=== PATIENT | female | born 1965 | race Caucasian/White ===

== ENCOUNTER 2016-05-06 02:00 | Inpatient (IN) | payer BC, MEDICAID ==
[2016-05-06 03:10] LABS: % IMMATURE GRANULYOCYTES 0.2 % (0.0-1.1); ABSOLUTE IMMATURE GRANULOCYTES 0.01 10^3/uL (0.00-0.10); ADD DIFF? NO; ADD MORPH? NO; ADD SCAN? YES; FRAGMENT RBC FLAG 0 (0-99); HEMATOCRIT 45.7 % (38.0-47.0); HEMOGLOBIN 15.6 g/dL (12.6-16.3); LEFT SHIFT FLG 0 (0-99); LIPEMIA HEMOLYSIS FLAG 90 (0-99); MEAN CELL HEMOGLOBIN 33.3 pg (27.9-34.1); MEAN CELL HEMOGLOBIN CONCENTR. 34.1 g/dL (32.4-36.7); MEAN CELL VOLUME 97.6 fL (81.5-99.8); MEAN PLATELET VOLUME 10.1 fL (8.7-11.7); PLATELET CLUMPS FLAG 10 (0-99); PLATELET COUNT 181 10^3/uL (150-400); RED BLOOD CELL COUNT 4.68 10^6/uL (4.18-5.33); RED CELL DISTRIBUTION WIDTH 13.6 % (11.5-15.2)
[2016-05-06 03:12] LABS: ATYPICAL LYMPHOCYTE FLAG 300 (0-99)
[2016-05-06 03:16] LABS: ANION GAP 15 mEq/L (8-16); CALCIUM 9.5 mg/dL (8.5-10.4); CARBON DIOXIDE 24 mEq/l (22-31); CHLORIDE 102 mEq/L (97-110); CREATININE 0.7 mg/dL (0.6-1.0); GLOMERULAR FILTRATION RATE > 60; GLUCOSE 89 mg/dL (70-100); POTASSIUM 3.3 mEq/L (3.5-5.2); SODIUM 141 mEq/L (134-144)
[2016-05-06] MEDS ORDERED: NS 1,000 ML IV ONE (03:37)
[2016-05-06] MEDS ORDERED: IPRATROPIUM/ALBUTEROL 3 ML DEYVIAL ONE (03:49)
[2016-05-06 03:50] LABS: SCAN POSITIVE
[2016-05-06 03:56] LABS: PLATELET ESTIMATE ADEQUATE (ADEQ)
[2016-05-06] MEDS ORDERED: IPRATROPIUM/ALBUTEROL 3 ML DEYVIAL IH ONE (03:57)
[2016-05-06] MEDS ORDERED: HYDROCODONE/APAP 5/325 TAB PO PRN (04:00)
[2016-05-06] MEDS ORDERED: HYDROCODONE/APAP 5/325 TAB ONE (04:02)
[2016-05-06] MEDS ORDERED: AZITHROMYCIN 250 MG TAB PO ONE (04:36)
[2016-05-06] MEDS ORDERED: predniSONE 20 MG TAB PO ONE (04:55)
[2016-05-06] MEDS ORDERED: ACETAMINOPHEN 500 MG TAB PO PRN (05:12)
[2016-05-06] MEDS ORDERED: LORazepam 0.5 MG TAB PO PRN (05:12)
[2016-05-06] MEDS ORDERED: ONDANSETRON 4 MG/2 ML VIAL IVP PRN (05:12)
[2016-05-06] MEDS ORDERED: ONDANSETRON DISINTEGRATING 4 MG TAB PO PRN (05:12)
[2016-05-06] MEDS ORDERED: ALBUTEROL 3 ML DEYVIAL IH PRN ×2 (05:17→09:26)
--- NOTE | 2016-05-06 05:17 | EDPHY ---
H & P Stated Complaint: cough, fever, sore throat , headache, vomiting Time Seen by Provider: 05/06/16 04:01 HPI/ROS: HPI The patient presents with about 1 week of cough, nasal congestion, headache, fevers. The cough has been nonproductive, worse at night, constant, minimally improved with albuterol. She developed a sore throat today. She has been taking Tylenol and Excedrin without any relief. She does not have any sick contacts.. REVIEW OF SYSTEMS Constitutional: Fevers and chills present Eyes: No discharge. ENT: + sore throat. Cardiovascular: No chest pain, no palpitations. Respiratory: See HPI Gastrointestinal: No abdominal pain, no vomiting. Genitourinary: No hematuria. Musculoskeletal: No back pain. Skin: No rashes. Neurological: No headache. PMHx: Asthma, , no recent admissions Soc Hx: Smoker, lives at home FHx: PHYSICAL General Appearance: Alert, no distress Eyes: Pupils equal and round no pallor or injection ENT, Mouth: Mucous membranes moist Respiratory: There are no retractions, lungs are clear to auscultation Cardiovascular: Regular rate and rhythm Gastrointestinal: Abdomen is soft and non-tender, no masses, bowel sounds normal Neurological: A&O, moves all extremities Skin: Warm and dry, no rashes Musculoskeletal: Neck is supple non tender Extremities: symmetrical, full range of motion Psychiatric: Patient is oriented X 3, there is no agitation Source: Patient Exam Limitations: No limitations - Personal History LMP (Females 10-55): Post Menopausal - Medical/Surgical History Hx Asthma: Yes Hx Chronic Respiratory Disease: No Hx Diabetes: No Hx Cardiac Disease: No Hx Renal Disease: No Hx Cirrhosis: No Hx Alcoholism: No Hx HIV/AIDS: No Hx Splenectomy or Spleen Trauma: No - Social History Smoking Status: Current every day smoker Constitutional: Initial Vital Signs Temperature (C) 38 C 05/06/16 02:10 Heart Rate 109 H 05/06/16 02:10 Respiratory Rate 20 05/06/16 02:10 Blood Pressure 111/77 05/06/16 02:10 O2 Sat (%) 86 L 05/06/16 02:10 O2 Delivery Mode Room Air O2 (L/minute) 2 Allergies/Adverse Reactions: No Allergies [NKDA] Allergy (Mild, Verified 07/20/09 22:04) NUTS Allergy (Severe, Uncoded 05/06/16 02:10) Anaphylaxis Home Medications: Medication Instructions Recorded Advair 100/50 07/20/09 Albuterol Sulf 07/20/09 EPINEPHrine [Epipen] 0.3 mg IM ONCE #2 syr 07/20/09 LEXAPRO 07/20/09 PREDNISONE 3 tab PO DAILY #9 07/20/09 Singulair 07/20/09 Xopenex Hfa 07/20/09 Xyzal 07/20/09 Medical Decision Making - Diagnostics Imaging: Chest x-ray two view shows diffuse peribronchial thickening consistent with atypical pneumonia with reactive airways, interpreted by me, radiology interpretation is pending. Differential Diagnosis: This is a 50-year-old female with history of asthma, smoking who presents from home with about 1 week of sore throat, cough, rhinorrhea, fevers, vomiting. On exam, she is hypoxic, slightly tachycardic. Differential diagnosis includes influenza, pneumonia, asthma exacerbation, COPD , less likely pulmonary embolism given no chest pain and positive rhinorrhea, sore throat. In the emergency room, the patient was given IV fluids with improvement in her mild tachycardia. Basic labs were checked and were unremarkable including a rapid flu. Her chest x-ray is suggestive of atypical pneumonia verses viral illness asthma exacerbation. She improved somewhat with nebs, however required oxygen because of sats in the 80s. I have given her antibiotics for community- acquired pneumonia. She will be admitted to the hospitalist service. I have discussed the case with the hospitalist . - Data Points Laboratory Results: Laboratory Results 05/06/16 02:45 05/06/16 02:45 05/06/16 05/06/16 05/06/16 02:59 02:45 02:45 WBC 5.78 10^3/uL 10^3/uL (3.80-9.50) RBC 4.68 10^6/uL 10^6/uL (4.18-5.33) Hgb 15.6 g/dL g/dL (12.6-16.3) Hct 45.7 % % (38.0-47.0) MCV 97.6 fL fL (81.5-99.8) MCH 33.3 pg pg (27.9-34.1) MCHC 34.1 g/dL g/dL (32.4-36.7) RDW 13.6 % % (11.5-15.2) Plt Count 181 10^3/uL 10^3/uL (150-400) MPV 10.1 fL fL (8.7-11.7) Neut % (Auto) 40.6 % % (39.3-74.2) Lymph % (Auto) 44.1 % % (15.0-45.0) Dillon % (Auto) 8.1 % % (4.5-13.0) Eos % (Auto) 6.7 % % (0.6-7.6) Baso % (Auto) 0.3 % % (0.3-1.7) Nucleat RBC Rel Count 0.0 % % (0.0-0.2) Absolute Neuts (auto) 2.34 10^3/uL 10^3/uL (1.70-6.50) Absolute Lymphs (auto) 2.55 10^3/uL 10^3/uL (1.00-3.00) Absolute Monos (auto) 0.47 10^3/uL 10^3/uL (0.30-0.80) Absolute Eos (auto) 0.39 10^3/uL 10^3/uL (0.03-0.40) Absolute Basos (auto) 0.02 10^3/uL 10^3/uL (0.02-0.10) Absolute Nucleated RBC 0.00 10^3/uL 10^3/uL (0-0.01) Immature Gran % 0.2 % % (0.0-1.1) Seg Neutrophils % 34 % % Band Neutrophils % 5 % % Lymphocytes % 45 % % Monocytes % 10 % % Eosinophils % 6 % % Immature Gran # 0.01 10^3/uL 10^3/uL (0.00-0.10) Absolute Seg Neuts 1.97 10^/uL 10^/uL (1.70-6.50) Absolute Band Neuts 0.29 10^3/uL 10^3/uL (0.00-0.70) Absolute Lymphocytes 2.60 10^3/uL 10^3/uL (1.00-3.00) Absolute Monocytes 0.58 10^3/uL 10^3/uL (0.30-0.80) Absolute Eosinophils 0.35 10^3/uL 10^3/uL (0.03-0.40) RBC/WBC/PLT Morphology NORMAL (NORMAL) Atypical Lymphocytes 1+ H Platelet Estimate ADEQUATE (ADEQ) VBG Lactic Acid Sodium 141 mEq/L mEq/L (134-144) Potassium 3.3 mEq/L L mEq/L (3.5-5.2) Chloride 102 mEq/L mEq/L (97-110) Carbon Dioxide 24 mEq/l mEq/l (22-31) Anion Gap 15 mEq/L mEq/L (8-16) BUN 8 mg/dL mg/dL (7-23) Creatinine 0.7 mg/dL mg/dL (0.6-1.0) Estimated GFR > 60 Glucose 89 mg/dL mg/dL (70-100) Calcium 9.5 mg/dL mg/dL (8.5-10.4) Influenza Typ A,B (DFA) NEGATIVE FOR FLU (NEGATIVE) 05/06/16 02:43 WBC RBC Hgb Hct MCV MCH MCHC RDW Plt Count MPV Neut % (Auto) Lymph % (Auto) Dillon % (Auto) Eos % (Auto) Baso % (Auto) Nucleat RBC Rel Count Absolute Neuts (auto) Absolute Lymphs (auto) Absolute Monos (auto) Absolute Eos (auto) Absolute Basos (auto) Absolute Nucleated RBC Immature Gran % Seg Neutrophils % Band Neutrophils % Lymphocytes % Monocytes % Eosinophils % Immature Gran # Absolute Seg Neuts Absolute Band Neuts Absolute Lymphocytes Absolute Monocytes Absolute Eosinophils RBC/WBC/PLT Morphology Atypical Lymphocytes Platelet Estimate VBG Lactic Acid 1.6 mmol/L mmol/L (0.7-2.1) Sodium Potassium Chloride Carbon Dioxide Anion Gap BUN Creatinine Estimated GFR Glucose Calcium Influenza Typ A,B (DFA) Medications Given: Discontinued Medications Acetaminophen/Hydrocodone Bitart ([place] 5/325) 2 tab PO Q4HRS PRN PRN Reason: Pain, Moderate Able to Take PO Stop: 05/16/16 03:59 Last Admin: 05/06/16 04:00 Dose: 2 tab Albuterol/Ipratropium (Duoneb) 3 ml IH EDNOW ONE Stop: 05/06/16 03:58 Last Admin: 05/06/16 03:59 Dose: 3 ml Azithromycin (Zithromax) 500 mg PO EDNOW ONE PRN Reason: Protocol Stop: 05/06/16 04:37 Last Admin: 05/06/16 05:02 Dose: 500 mg Sodium Chloride (Ns) 1,000 mls @ 0 mls/hr IV ONCE ONE PRN Reason: Wide Open Stop: 05/06/16 03:38 Last Admin: 05/06/16 02:55 Dose: 1,000 mls Ceftriaxone Sodium/Dextrose (Rocephin 1 Gm (Premix)) 50 mls @ 100 mls/hr IV EDNOW ONE PRN Reason: Protocol Stop: 05/06/16 05:05 Last Admin: 05/06/16 05:03 Dose: 50 mls Prednisone (Prednisone) 60 mg PO EDNOW ONE Stop: 05/06/16 04:56 Last Admin: 05/06/16 05:38 Dose: 60 mg Departure - Departure Disposition: [facility] Inpatient Acute Clinical Impression: Exacerbation of asthma, Hypoxia Pneumonia Qualifiers: Pneumonia type: due to unspecified organism Laterality: bilateral Lung location : unspecified part of lung Qualified Code(s): J18.9 - Pneumonia, unspecified organism Condition: Fair
[2016-05-06] MEDS ORDERED: LORazepam 1 MG TAB PO PRN (05:18)
[2016-05-06] MEDS ORDERED: PROTOCOL POTASSIUM 1 DOSE MISC PRN (06:23)
[2016-05-06] MEDS ORDERED: PROTOCOL MAGNESIUM 1 DOSE IV PRN (06:23)
--- NOTE | 2016-05-06 06:25 | PDGENHP ---
History and Physical - Chief Complaint cough, n/v/d - History of Present Illness patient is a 50-year-old female with history of asthma, GERD, allergic rhinitis , anxiety disorder who presents to the ED complaining of 1 week generalized malaise. Patient states symptoms began with congestion, cough sometimes productive and sore throat. soon after she also began experiencing nausea, vomiting and diarrhea reports having greater then 10 episodes of vomiting and diarrhea daily for the past 3 days, no blood visualized in either vomitus or stool. In addition she has been having continuous fevers and chills. By 2017, patient felt her vomiting and diarrhea had begun to improve, last episode of diarrhea was the morning of 05/05. However she continued to feel generalized malaise and shortness of breath with wheezing. Her wheezing was not really responsive to her home albuterol pump and neb treatments, so she decided to come to the ED for further evaluation. She denies any associated chest pain, palpitations or urinary symptoms. She reports a sick contact in her , who is having similar symptoms with less intensity. Denies any recent travel or prolonged immobilization. On arrival to the ED patient was febrile and hypoxic, but otherwise hemodynamically stable. Labs revealed normal CBC, hypokalemia but otherwise normal BMP. Chest x-ray revealed no obvious focal infiltrate, but evidence of a viral pneumonitis, official radiology read pending. Patient was initiated on neb treatments and antibiotic coverage. History Information - Allergies/Home Medication List Allergies/Adverse Reactions: No Allergies [NKDA] Allergy (Mild, Verified 07/20/09 22:04) NUTS Allergy (Severe, Uncoded 05/06/16 02:10) Anaphylaxis Home Medications: Advair 100/50 07/20/09 [Last Taken Unknown] Albuterol Sulf 07/20/09 [Last Taken Unknown] LEXAPRO 07/20/09 [Last Taken Unknown] Singulair 07/20/09 [Last Taken Unknown] Xopenex Hfa 07/20/09 [Last Taken Unknown] Xyzal 07/20/09 [Last Taken Unknown] I have personally reviewed and updated: family history, medical history, social history, surgical history - Past Medical History Additional medical history: Asthma- has never been intubated, last hospitalization for exacerbation was in childhood. chronic allergic rhinitis. Severe nut allergy with anaphylaxis, has never been intubated. generalized anxiety disorder. 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 Review of Systems ROS: 10pt was reviewed & negative except for what was stated in HPI & below Physical Exam Temp Pulse Resp BP Pulse Ox 37.3 C 80 18 98/59 L 93 05/06/16 06:18 05/06/16 06:18 05/06/16 06:18 05/06/16 06:18 05/06/16 06:18 O2 (L/minute) 2 Constitutional: no apparent distress, appears nourished, not in pain Eyes: PERRL, anicteric sclera, EOMI Ears, Nose, Mouth, Throat: hearing normal, ears appear normal, no oral mucosal ulcers, dry mucous membranes Cardiovascular: regular rate and rhythym, no murmur, rub, or gallop, pulses symmetric bilaterally, No JVD, No edema Peripheral Pulses: 2+: dorsalis-pedis (R), dorsalis-pedis (L) Respiratory: no respiratory distress, no rales or rhonchi, expiratory wheeze Gastrointestinal: normoactive bowel sounds, soft, non-tender abdomen, no palpable masses, No guarding, No rebound Genitourinary: no bladder fullness, no bladder tenderness Skin: warm, normal color, no rashes or abrasions, no fluctuance, No mottled Musculoskeletal: full muscle strength, no muscle tenderness, normal joint ROM, no joint effusions Neurologic: AAOx3, sensation intact bilaterally, CN II-XII Intact, No weakness, No numbness Psychiatric: interacting appropriately, not anxious, not encephalopathic, thought process linear Lab Data & Imaging Review 05/06/16 02:45 05/06/16 02:45 WBC 5.78 10^3/uL (3.80-9.50) 05/06/16 02:45 RBC 4.68 10^6/uL (4.18-5.33) 05/06/16 02:45 Hgb 15.6 g/dL (12.6-16.3) 05/06/16 02:45 Hct 45.7 % (38.0-47.0) 05/06/16 02:45 MCV 97.6 fL (81.5-99.8) 05/06/16 02:45 MCH 33.3 pg (27.9-34.1) 05/06/16 02:45 MCHC 34.1 g/dL (32.4-36.7) 05/06/16 02:45 RDW 13.6 % (11.5-15.2) 05/06/16 02:45 Plt Count 181 10^3/uL (150-400) 05/06/16 02:45 MPV 10.1 fL (8.7-11.7) 05/06/16 02:45 Neut % (Auto) 40.6 % (39.3-74.2) 05/06/16 02:45 Lymph % (Auto) 44.1 % (15.0-45.0) 05/06/16 02:45 Dale % (Auto) 8.1 % (4.5-13.0) 05/06/16 02:45 Eos % (Auto) 6.7 % (0.6-7.6) 05/06/16 02:45 Baso % (Auto) 0.3 % (0.3-1.7) 05/06/16 02:45 Nucleat RBC Rel Count 0.0 % (0.0-0.2) 05/06/16 02:45 Absolute Neuts (auto) 2.34 10^3/uL (1.70-6.50) 05/06/16 02:45 Absolute Lymphs (auto) 2.55 10^3/uL (1.00-3.00) 05/06/16 02:45 Absolute Monos (auto) 0.47 10^3/uL (0.30-0.80) 05/06/16 02:45 Absolute Eos (auto) 0.39 10^3/uL (0.03-0.40) 05/06/16 02:45 Absolute Basos (auto) 0.02 10^3/uL (0.02-0.10) 05/06/16 02:45 Absolute Nucleated RBC 0.00 10^3/uL (0-0.01) 05/06/16 02:45 Immature Gran % 0.2 % (0.0-1.1) 05/06/16 02:45 Seg Neutrophils % 34 % 05/06/16 02:45 Band Neutrophils % 5 % 05/06/16 02:45 Lymphocytes % 45 % 05/06/16 02:45 Monocytes % 10 % 05/06/16 02:45 Eosinophils % 6 % 05/06/16 02:45 Immature Gran # 0.01 10^3/uL (0.00-0.10) 05/06/16 02:45 Absolute Seg Neuts 1.97 10^/uL (1.70-6.50) 05/06/16 02:45 Absolute Band Neuts 0.29 10^3/uL (0.00-0.70) 05/06/16 02:45 Absolute Lymphocytes 2.60 10^3/uL (1.00-3.00) 05/06/16 02:45 Absolute Monocytes 0.58 10^3/uL (0.30-0.80) 05/06/16 02:45 Absolute Eosinophils 0.35 10^3/uL (0.03-0.40) 05/06/16 02:45 RBC/WBC/PLT Morphology NORMAL (NORMAL) 05/06/16 02:45 Atypical Lymphocytes 1+ H 05/06/16 02:45 Platelet Estimate ADEQUATE (ADEQ) 05/06/16 02:45 VBG Lactic Acid 1.6 mmol/L (0.7-2.1) 05/06/16 02:43 Sodium 141 mEq/L (134-144) 05/06/16 02:45 Potassium 3.3 mEq/L (3.5-5.2) L 05/06/16 02:45 Chloride 102 mEq/L (97-110) 05/06/16 02:45 Carbon Dioxide 24 mEq/l (22-31) 05/06/16 02:45 Anion Gap 15 mEq/L (8-16) 05/06/16 02:45 BUN 8 mg/dL (7-23) 05/06/16 02:45 Creatinine 0.7 mg/dL (0.6-1.0) 05/06/16 02:45 Estimated GFR > 60 05/06/16 02:45 Glucose 89 mg/dL (70-100) 05/06/16 02:45 Calcium 9.5 mg/dL (8.5-10.4) 05/06/16 02:45 Influenza Typ A,B (DFA) NEGATIVE FOR FLU (NEGATIVE) 05/06/16 02:59 Visualized and Interpreted Chest x-ray results: Yes Chest X-Ray results: other (? pneumonitis) Assessment & Plan Assessment: patient is a 50-year-old female with a history of asthma, GERD and generalized anxiety disorder who presents to the ED with 8 days of upper respiratory and gastroenteritis viral syndrome. ED evaluation reveals hypoxia on room air consistent with acute asthma exacerbation, possibly community-acquired pneumonia with rapid flu swab negative. Plan: # acute hypoxic respiratory failure Patient hypoxic on room air with faint wheezing present diffusely. Acute respiratory failure likely secondary to acute asthma exacerbation, with viral versus bacterial interstitial pneumonia also likely present and contributing to hypoxia. patient without any risk factors for PE, and denies any chest pain palpitations, low suspicion. Will initiate treatment with p.o. steroids, standing and p.r.n. nebs, and antibiotic coverage for community-acquired pneumonia. Rapid flu swab was negative. # fever, cough Patient reports 8 days of headache, productive cough and shortness of breath, as well as profuse nausea, vomiting and diarrhea. Although patient had low grade fever on presentation, she did not meet sepsis criteria, was without leukocytosis and lactic acid was wnl. CXR official read pending, but there appears to be evidence of pneumonitis vs atypical community acquired pneumonia. Will treat with abx for CAP coverage, check blood and sputum cultures, as well as legionella and strept antigen. # nausea, vomiting, diarrhea Appears consistent with a viral gastroenteritis. Abdominal exam is benign. No indication for abdominal imaging, but will check LFTs and reassess. Patient feels her abdominal symptoms were improving over the past 24 hours. Will continue symptomatic treatment and IVF hydration as needed. # hypokalemia Likely related to recent GI losses. Will place on replacement protocol and trend. # chronic alcohol use Pt reports drinking about 6 beers daily, occasionally more. She denies any history of withdrawal symptoms, but will place on CIWA, with ativan prn per protocol and supplement thiamine/folate/Multivitamin. # chronic allergic rhinitis Cont home anti-histamine, which patient takes daily. # generalized anxiety disorder Stable, will cont home med and provide ativan prn. # dispo: admit to observation status for mild asthma exacerbation, viral syndrome # gen: regular diet DVT ppx: lovenox Full code
[2016-05-06] MEDS: IPRATROPIUM/ALBUTEROL 3 ML DEYVIAL IH SCH ×5 (06:53→20:41)
[2016-05-06] MEDS: NS 1,000 ML IV SCH (07:48)
[2016-05-06 08:33] LABS: % IMMATURE GRANULYOCYTES 0.5 % (0.0-1.1); ABSOLUTE IMMATURE GRANULOCYTES 0.02 10^3/uL (0.00-0.10); ADD DIFF? NO; ADD MORPH? NO; ADD SCAN? YES; FRAGMENT RBC FLAG 0 (0-99); HEMATOCRIT 40.7 % (38.0-47.0); HEMOGLOBIN 13.6 g/dL (12.6-16.3); LEFT SHIFT FLG 0 (0-99); LIPEMIA HEMOLYSIS FLAG 80 (0-99); MEAN CELL HEMOGLOBIN 32.2 pg (27.9-34.1); MEAN CELL HEMOGLOBIN CONCENTR. 33.4 g/dL (32.4-36.7); MEAN CELL VOLUME 96.4 fL (81.5-99.8); MEAN PLATELET VOLUME 9.9 fL (8.7-11.7); PLATELET CLUMPS FLAG 0 (0-99); PLATELET COUNT 173 10^3/uL (150-400); RED BLOOD CELL COUNT 4.22 10^6/uL (4.18-5.33); RED CELL DISTRIBUTION WIDTH 13.9 % (11.5-15.2)
[2016-05-06] MEDS: HYDROCODONE/APAP 5/325 TAB PO PRN ×3 (09:06→19:43)
[2016-05-06] MEDS: FOLIC ACID 1 MG TAB PO SCH (09:06)
[2016-05-06 09:07] LABS: ATYPICAL LYMPHOCYTE FLAG 300 (0-99)
[2016-05-06] MEDS: ENOXAPARIN 40 MG/0.4 ML SYR SC SCH (09:07)
[2016-05-06] MEDS: MULTIVITAMINS 1 EACH TAB PO SCH (09:07)
[2016-05-06 09:18] LABS: ALANINE AMINOTRANSFERASE 36 IU/L (9-52); ALBUMIN 3.5 g/dL (3.5-5.0); ALKALINE PHOSPHATASE 83 IU/L (38-126); ANION GAP 9 mEq/L (8-16); ASPARTATE AMINOTRANSFERASE 41 IU/L (14-46); BILIRUBIN,TOTAL 0.4 mg/dL (0.1-1.4); BILIRUBIN-CONJUGATED 0.4 mg/dL (0.0-0.5); CALCIUM 8.5 mg/dL (8.5-10.4); CARBON DIOXIDE 24 mEq/l (22-31); CHLORIDE 106 mEq/L (97-110); CREATININE 0.7 mg/dL (0.6-1.0); GLOMERULAR FILTRATION RATE > 60; GLUCOSE 144 mg/dL (70-100); MAGNESIUM 1.9 mg/dL (1.6-2.3); POTASSIUM 3.8 mEq/L (3.5-5.2); SODIUM 139 mEq/L (134-144); TOTAL PROTEIN 6.7 g/dL (6.3-8.2)
[2016-05-06] MEDS ORDERED: IPRATROPIUM/ALBUTEROL 3 ML DEYVIAL IH PRN (09:25)
[2016-05-06] MEDS ORDERED: ACETAMINOPHEN/ASA/CAFFEINE 1 EACH TAB PO PRN (09:26)
[2016-05-06] MEDS ORDERED: ALBUTEROL 60 PUFFS/8 GM MDI IH PRN (09:26)
[2016-05-06] MEDS ORDERED: EPINEPHRINE 0.3 MG IM PRN (09:26)
[2016-05-06] MEDS ORDERED: diphenhydrAMINE 25 MG CAP PO PRN (09:26)
[2016-05-06] MEDS ORDERED: NON-FORMULARY NEW DRUG (Fexofenadine Hcl [Fexofenadine Hcl] 180 MG) PO SCH (09:30)
[2016-05-06] MEDS ORDERED: NON-FORMULARY NEW DRUG (Omeprazole [Prilosec 20 Mg] 20 MG) PO SCH (09:30)
[2016-05-06] MEDS ORDERED: Epinephrine [Epipen] 0.3 MG IM PRN (09:43)
[2016-05-06 09:50] LABS: SCAN POSITIVE
[2016-05-06 10:01] LABS: PLATELET ESTIMATE ADEQUATE (ADEQ)
[2016-05-06 10:03] LABS: GIANT PLATELETS PRESENT
[2016-05-06] MEDS: CITALOPRAM 20 MG TAB PO SCH (10:19)
[2016-05-06] MEDS: PANTOPRAZOLE SODIUM 40 MG TAB PO SCH (10:19)
[2016-05-06] MEDS: CETIRIZINE 10 MG TAB PO SCH (10:19)
[2016-05-06] MEDS ORDERED: POTASSIUM CL 10 MEQ TAB PO ONE ×2 (11:00→19:02)
--- NOTE | 2016-05-06 12:51 | HOSPPROG ---
Hospitalist Progress Note Assessment/Plan: patient is a 50-year-old female with a history of asthma, GERD and generalized anxiety disorder who presents to the ED with 8 days of upper respiratory and gastroenteritis viral syndrome. ED evaluation reveals hypoxia on room air consistent with acute asthma exacerbation, possibly community-acquired pneumonia with rapid flu swab negative. Plan: # acute hypoxic respiratory failure Patient hypoxic on room air with faint wheezing present diffusely. Acute respiratory failure likely secondary to acute asthma exacerbation, with viral versus bacterial interstitial pneumonia also likely present and contributing to hypoxia. patient without any risk factors for PE, and denies any chest pain palpitations, low suspicion. Will initiate treatment with p.o. steroids, standing and p.r.n. nebs, and antibiotic coverage for community-acquired pneumonia. Rapid flu swab was negative. # fever, cough Patient reports 8 days of headache, productive cough and shortness of breath, as well as profuse nausea, vomiting and diarrhea. Although patient had low grade fever on presentation, she did not meet sepsis criteria, was without leukocytosis and lactic acid was wnl. CXR official read pending, but there appears to be evidence of pneumonitis vs atypical community acquired pneumonia. Will treat with abx for CAP coverage, check blood and sputum cultures, as well as legionella and strept antigen. # nausea, vomiting, diarrhea Appears consistent with a viral gastroenteritis. Abdominal exam is benign. No indication for abdominal imaging, but will check LFTs and reassess. Patient feels her abdominal symptoms were improving over the past 24 hours. Will continue symptomatic treatment and IVF hydration as needed. # hypokalemia Likely related to recent GI losses. Will place on replacement protocol and trend. # chronic alcohol use Pt reports drinking about 6 beers daily, occasionally more. She denies any history of withdrawal symptoms, but will place on CIWA, with ativan prn per protocol and supplement thiamine/folate/Multivitamin. # chronic allergic rhinitis Cont home anti-histamine, which patient takes daily. # generalized anxiety disorder Stable, will cont home med and provide ativan prn. # dispo: admit to observation status for mild asthma exacerbation, viral syndrome Restarted home meds # gen: regular diet DVT ppx: lovenox Full code Subjective: Still feeling weak and tired. Tight breathing. Objective: Vital Signs Temp Pulse Resp BP Pulse Ox 37.3 C 80 18 98/59 L 93 05/06/16 06:18 05/06/16 06:18 05/06/16 06:18 05/06/16 06:18 05/06/16 06:18 Laboratory Results 05/06/16 08:13 05/06/16 08:13 05/05/16 05/06/16 05/07/16 05:59 05:59 05:59 Intake Total 1100 Output Total 650 Balance 450 - Physical Exam Constitutional: not in pain, chronically ill appearing Eyes: PERRL, EOMI Ears, Nose, Mouth, Throat: moist mucous membranes, hearing normal Cardiovascular: No JVD, No edema Respiratory: reduced air movement, expiratory wheeze Gastrointestinal: No tenderness, No ascites Skin: warm, normal color Neurologic: AAOx3 Psychiatric: not anxious, not encephalopathic ICD10 Worksheet Patient Problems: Problems Problem Status Onset Pneumonia Acute Exacerbation of asthma Acute Hypoxia Acute
[2016-05-06 18:34] LABS: POTASSIUM 3.5 mEq/L (3.5-5.2)
[2016-05-07] MEDS: IPRATROPIUM/ALBUTEROL 3 ML DEYVIAL IH SCH ×4 (05:05→21:07)
[2016-05-07] MEDS: NS 1,000 ML IV SCH (05:12)
[2016-05-07] MEDS: HYDROCODONE/APAP 5/325 TAB PO PRN ×3 (05:42→18:20)
[2016-05-07 05:48] LABS: ANION GAP 5 mEq/L (8-16); CALCIUM 8.5 mg/dL (8.5-10.4); CARBON DIOXIDE 25 mEq/l (22-31); CHLORIDE 111 mEq/L (97-110); CREATININE 0.5 mg/dL (0.6-1.0); GLOMERULAR FILTRATION RATE > 60; GLUCOSE 100 mg/dL (70-100); MAGNESIUM 1.9 mg/dL (1.6-2.3); POTASSIUM 4.1 mEq/L (3.5-5.2); SODIUM 141 mEq/L (134-144)
[2016-05-07] MEDS: ENOXAPARIN 40 MG/0.4 ML SYR SC SCH (08:04)
[2016-05-07] MEDS: MULTIVITAMINS 1 EACH TAB PO SCH (08:05)
[2016-05-07] MEDS: predniSONE 20 MG TAB PO SCH (08:06)
[2016-05-07] MEDS: CETIRIZINE 10 MG TAB PO SCH (08:06)
[2016-05-07] MEDS: PANTOPRAZOLE SODIUM 40 MG TAB PO SCH (08:06)
[2016-05-07] MEDS: CITALOPRAM 20 MG TAB PO SCH (08:06)
[2016-05-07] MEDS: FOLIC ACID 1 MG TAB PO SCH (08:09)
[2016-05-07] MEDS: AZITHROMYCIN IV 500 MG in D5W 250 ML IV SCH (09:38)
--- NOTE | 2016-05-07 10:12 | HOSPPROG ---
Hospitalist Progress Note Assessment/Plan: Patient is a 50-year-old female with a history of asthma, GERD and generalized anxiety disorder. She presented to the ED with 8 days of upper respiratory and gastroenteritis symptoms. Today is my 1st encounter with the patient. Chart reviewed. # acute hypoxic respiratory failure * likely a URI/poss pneumonia * negative for influenza * likely multifactorial with history of asthma, and nicotine dependence #. concern for CAP * prn nebs, steroids * abx * will ask RN to do a room air challenge * afebrile #. viral gastroenteritis * supportive treatment * symptoms of nausea and diarrhea have resolved. She is eating and drinking well #. Asthma * patient states she is usually on Qvar/this has been added # hypokalemia * resolved # chronic alcohol use * per patient drinks 6 beer daily * placed on CIWA * supportive treatment w thiamine, folate and MVI * Added beer twice daily/ she was slightly tremulous during my interview # chronic allergic rhinitis * continue antihistamine #. nicotine dependence * cessation recommended # generalized anxiety disorder # dispo: she will require inpatient stay. She is hypoxic during my interview and continues to be very short of breath. Hopefully, will be ready for discharge the next 1-2 days if stable. Subjective: patient states that she is feeling too poorly to be discharged today. continues to feel very short of breath. Objective: Vital Signs Temp Pulse Resp BP Pulse Ox 36.6 C 67 12 95/59 L 92 05/07/16 07:28 05/07/16 09:51 05/07/16 07:28 05/07/16 07:28 05/07/16 09:51 Laboratory Results 05/06/16 08:13 05/07/16 05:14 05/06/16 05/07/16 05/08/16 05:59 05:59 05:59 Intake Total 2300 Output Total 650 Balance 1650 - Physical Exam Constitutional: uncomfortable Eyes: PERRL Ears, Nose, Mouth, Throat: hearing normal Cardiovascular: regular rate and rhythym, tachycardia Respiratory: no respiratory distress, expiratory wheeze Skin: warm Musculoskeletal: full muscle strength Neurologic: AAOx3 Psychiatric: interacting appropriately, anxious ICD10 Worksheet Patient Problems: Problems Problem Status Onset Exacerbation of asthma Acute Hypoxia Acute Pneumonia Acute
[2016-05-07] MEDS: BECLOMETHASONE QVAR 40 MDI IH SCH ×2 (11:17→21:10)
[2016-05-07] MEDS: BEER 1 EACH EA PO SCH ×2 (12:20→21:16)
[2016-05-07] MEDS: IBUPROFEN 200 MG TAB PO PRN ×2 (15:05→21:16)
[2016-05-07 18:04] LABS: POTASSIUM 3.8 mEq/L (3.5-5.2)
[2016-05-07] MEDS ORDERED: POTASSIUM CL 10 MEQ TAB PO ONE (20:14)
[2016-05-08] MEDS: HYDROCODONE/APAP 5/325 TAB PO PRN ×5 (00:57→23:00)
[2016-05-08] MEDS: IPRATROPIUM/ALBUTEROL 3 ML DEYVIAL IH SCH ×4 (05:49→20:57)
[2016-05-08 05:52] LABS: ANION GAP 7 mEq/L (8-16); CALCIUM 8.7 mg/dL (8.5-10.4); CARBON DIOXIDE 26 mEq/l (22-31); CHLORIDE 107 mEq/L (97-110); CREATININE 0.5 mg/dL (0.6-1.0); GLOMERULAR FILTRATION RATE > 60; GLUCOSE 101 mg/dL (70-100); MAGNESIUM 1.8 mg/dL (1.6-2.3); POTASSIUM 3.6 mEq/L (3.5-5.2); SODIUM 140 mEq/L (134-144)
[2016-05-08] MEDS ORDERED: POTASSIUM CL 10 MEQ TAB PO ONE ×2 (08:03→12:47)
[2016-05-08] MEDS ORDERED: MAGNESIUM SULF 1 GM/DEXTROSE 100 ML IV ONE ×2 (08:06→09:10)
--- NOTE | 2016-05-08 09:12 | HOSPPROG ---
Hospitalist Progress Note Assessment/Plan: Patient is a 50-year-old female with a history of asthma, GERD and generalized anxiety disorder. She presented to the ED with 8 days of upper respiratory and gastroenteritis symptoms. # acute hypoxic respiratory failure * likely a URI/poss pneumonia /also has asthma * negative for influenza * still requiring 2 liters of oxygen #. concern for CAP * prn nebs, steroids * abx * did a room air challenge, sats 85-87% * afebrile #. viral gastroenteritis * resolved #. Asthma * Qvar * give a dose of mag sulfate x 1 now/ increase wheezing * check a peak flow # hypokalemia * resolved # chronic alcohol use * per patient drinks 6 beer daily * placed on CIWA * supportive treatment w thiamine, folate and MVI * Added beer twice daily/ which has helped * encouraged her to cut back # chronic allergic rhinitis * continue antihistamine #. nicotine dependence * cessation recommended/told her this is affecting her health ifrah with asthma # generalized anxiety disorder # dispo: pending/ still hypoxic and short of breath. Will need another midnight stay. Subjective: Betsy is still feeling short of breath. Objective: Vital Signs Temp Pulse Resp BP Pulse Ox 37.0 C 68 16 133/95 H 93 05/08/16 07:49 05/08/16 07:49 05/08/16 07:49 05/08/16 07:49 05/08/16 07:49 Laboratory Results 05/08/16 05:10 - Physical Exam Constitutional: uncomfortable Eyes: PERRL Ears, Nose, Mouth, Throat: hearing normal Cardiovascular: regular rate and rhythym Respiratory: reduced air movement (bibasilar), expiratory wheeze Gastrointestinal: normoactive bowel sounds Skin: warm Musculoskeletal: full muscle strength, no muscle tenderness Neurologic: AAOx3 Psychiatric: interacting appropriately, anxious ICD10 Worksheet Patient Problems: Problems Problem Status Onset Exacerbation of asthma Acute Hypoxia Acute Pneumonia Acute
[2016-05-08] MEDS: BECLOMETHASONE QVAR 40 MDI IH SCH ×2 (09:19→21:00)
[2016-05-08] MEDS: ENOXAPARIN 40 MG/0.4 ML SYR SC SCH (10:24)
[2016-05-08] MEDS: FOLIC ACID 1 MG TAB PO SCH (11:11)
[2016-05-08] MEDS: CETIRIZINE 10 MG TAB PO SCH (11:11)
[2016-05-08] MEDS: CITALOPRAM 20 MG TAB PO SCH (11:12)
[2016-05-08] MEDS: AZITHROMYCIN IV 500 MG in D5W 250 ML IV SCH (11:12)
[2016-05-08] MEDS: BENZONATATE 100 MG CAP PO PRN ×2 (12:17→19:34)
[2016-05-08] MEDS: predniSONE 20 MG TAB PO SCH (12:18)
[2016-05-08] MEDS: MULTIVITAMINS 1 EACH TAB PO SCH (12:18)
[2016-05-08] MEDS: PANTOPRAZOLE SODIUM 40 MG TAB PO SCH (12:20)
[2016-05-08] MEDS: BEER 1 EACH EA PO SCH ×2 (14:35→21:18)
[2016-05-08 18:40] LABS: POTASSIUM 4.1 mEq/L (3.5-5.2)
[2016-05-09] MEDS: IPRATROPIUM/ALBUTEROL 3 ML DEYVIAL IH SCH ×4 (05:29→20:38)
[2016-05-09] MEDS: HYDROCODONE/APAP 5/325 TAB PO PRN ×5 (05:42→22:24)
[2016-05-09 05:47] LABS: ALANINE AMINOTRANSFERASE 34 IU/L (9-52); ALBUMIN 3.3 g/dL (3.5-5.0); ALKALINE PHOSPHATASE 67 IU/L (38-126); ANION GAP 8 mEq/L (8-16); ASPARTATE AMINOTRANSFERASE 34 IU/L (14-46); BILIRUBIN,TOTAL 0.4 mg/dL (0.1-1.4); CALCIUM 8.9 mg/dL (8.5-10.4); CARBON DIOXIDE 31 mEq/l (22-31); CHLORIDE 102 mEq/L (97-110); CREATININE 0.6 mg/dL (0.6-1.0); GLOMERULAR FILTRATION RATE > 60; GLUCOSE 100 mg/dL (70-100); MAGNESIUM 2.3 mg/dL (1.6-2.3); POTASSIUM 4.1 mEq/L (3.5-5.2); SODIUM 141 mEq/L (134-144); TOTAL PROTEIN 6.4 g/dL (6.3-8.2)
[2016-05-09 06:03] LABS: VITAMIN D 25-HYDROXY TOTAL 21.7 ng/mL (30-100)
[2016-05-09 06:10] LABS: ADD MORPH? NO; ADD SCAN? YES; FRAGMENT RBC FLAG 0 (0-99); HEMATOCRIT 35.1 % (38.0-47.0); HEMOGLOBIN 11.6 g/dL (12.6-16.3); LEFT SHIFT FLG 0 (0-99); LIPEMIA HEMOLYSIS FLAG 80 (0-99); MEAN CELL HEMOGLOBIN 33.1 pg (27.9-34.1); MEAN CELL VOLUME 100.3 fL (81.5-99.8); MEAN PLATELET VOLUME 10.9 fL (8.7-11.7); PLATELET CLUMPS FLAG 0 (0-99); PLATELET COUNT 203 10^3/uL (150-400)
[2016-05-09 06:24] LABS: ATYPICAL LYMPHOCYTE FLAG 100 (0-99)
[2016-05-09 06:49] LABS: ADD DIFF? YES; SCAN POSITIVE
[2016-05-09 06:55] LABS: MACROCYTES 1+; PLATELET ESTIMATE ADEQUATE (ADEQ)
[2016-05-09] MEDS ORDERED: FUROSEMIDE 20 MG/2 ML VIAL IVP ONE ×2 (09:06→14:05)
--- NOTE | 2016-05-09 09:10 | HOSPPROG ---
Hospitalist Progress Note Assessment/Plan: Patient is a 50-year-old female with a history of asthma, GERD and generalized anxiety disorder. She presented to the ED with 8 days of upper respiratory and gastroenteritis symptoms. # acute hypoxic respiratory failure * likely a URI/poss pneumonia /also has asthma * negative for influenza * now on 0.5 liters * suspect she is fluid overloaded with elevated bnp/pleural effusions/ will give one dose of lasix #. bilateral pleural effusions * get an echo for further eval * one dose of lasix #. concern for CAP * prn nebs, steroids * abx * did a room air challenge, sats 85-87% * afebrile #. viral gastroenteritis * resolved #. Asthma * Qvar * give a dose of mag sulfate x 1 now/ increase wheezing * check a peak flow # hypokalemia * resolved # chronic alcohol use * per patient drinks 6 beer daily * placed on CIWA * supportive treatment w thiamine, folate and MVI * Added beer twice daily/ which has helped * encouraged her to cut back # chronic allergic rhinitis * continue antihistamine #. nicotine dependence * cessation recommended/told her this is affecting her health ifrah with asthma # generalized anxiety disorder # dispo: hopefully dc later today Subjective: Betsy is c/o right side hurting with coughing. Objective: Vital Signs Temp Pulse Resp BP Pulse Ox 36.9 C 77 20 125/85 H 92 05/09/16 08:00 05/09/16 08:00 05/09/16 08:00 05/09/16 08:00 05/09/16 08:00 Laboratory Results 05/09/16 05:09 05/09/16 05:09 05/08/16 05/09/16 05/10/16 05:59 05:59 05:59 Intake Total 800 Balance 800 - Physical Exam Constitutional: uncomfortable Eyes: PERRL Ears, Nose, Mouth, Throat: hearing normal Cardiovascular: regular rate and rhythym Respiratory: no respiratory distress, expiratory wheeze ( better today than yesterday) Gastrointestinal: normoactive bowel sounds Skin: warm Musculoskeletal: full muscle strength Neurologic: AAOx3 Psychiatric: interacting appropriately, anxious ICD10 Worksheet Patient Problems: Problems Problem Status Onset Exacerbation of asthma Acute Hypoxia Acute Pneumonia Acute
[2016-05-09] MEDS: predniSONE 20 MG TAB PO SCH (09:21)
[2016-05-09] MEDS: CITALOPRAM 20 MG TAB PO SCH (09:21)
[2016-05-09] MEDS: MULTIVITAMINS 1 EACH TAB PO SCH (09:21)
[2016-05-09] MEDS: CETIRIZINE 10 MG TAB PO SCH (09:21)
[2016-05-09] MEDS: THIAMINE HCL 100 MG TAB PO SCH (09:21)
[2016-05-09] MEDS: PANTOPRAZOLE SODIUM 40 MG TAB PO SCH (09:21)
[2016-05-09] MEDS: FOLIC ACID 1 MG TAB PO SCH (09:21)
[2016-05-09] MEDS: ENOXAPARIN 40 MG/0.4 ML SYR SC SCH (09:22)
[2016-05-09] MEDS: BECLOMETHASONE QVAR 40 MDI IH SCH ×2 (09:23→20:40)
[2016-05-09] MEDS: CHOLECALCIFEROL VIT D3 1,000 UNITS TAB PO SCH (09:25)
[2016-05-09] MEDS: BENZONATATE 100 MG CAP PO PRN ×2 (09:25→14:36)
[2016-05-09] MEDS: BEER 1 EACH EA PO SCH ×2 (09:29→21:07)
--- NOTE | 2016-05-09 11:00 | ECHO ---
[id number] + + [address] : : [place] [address] : : [phone] + + Adult Echocardiographic Report + ------+ :Name: AGUSTO ROMAN EStmikey Date: 05/09/2016 08:47 AM : : Hospital Admission Number: [id number] Locatio n: 392: :: 1965 Gender: Female Height: 65 in : :Age: 50 yrs Race: WH Weight: 116 lb : :Reason For Study: Continued 02 needs/fluid overload : : BSA: 1.6 meters 2 : :History: Asthma : + ------+ MMode/2D Measurements \T\ Calculations IVSd: 0.82 cm LVIDd: 4.9 cm FS: 35.8 % Ao root diam: LVPWd: 0.85 cm LVIDs: 3.2 cm EDV(Teich): 3.3 cm 115.2 ml LA dimension: ESV(Teich): 3.3 cm 40.2 ml EF(Teich): 65.1 % LVLd ap4: 6.9 cm SV(MOD-sp4): EDV(MOD-sp4): 41.0 ml 61.0 ml LVLs ap4: 5.9 cm ESV(MOD-sp4): 20.0 ml EF(MOD-sp4): 67.2 % Normal Measurement Values: + + :LVIDd (3.5-5.7cm) IVSd (0.6-1.1cm) LVPWd (0.6-1.1cm) Aortic Root (2.0-3.7cm)Left Atrium (1.5-4.0cm): :LV Vol(d) (76-115ml) LV Vol(s) (29-48ml) Ejec Fraction (50-65%)PV Len (0.6- 1.2m/s) TV Lne (0.4-1.0m/s) : :MV E Len (0.8-1.0m/s)MV A Len (0.3-1.0m/s)LVOT Len (0.7-1.2m/s) Asc Ao Len ( 0.9-1.8m/s) : + + Doppler Measurements \T\ Calculations MV E max len: 90.3 cm/sec Ao mean P.8 mmHg TR max len: 257.9 cm/sec MV A max len: 69.1 cm/sec Ao V2 mean: 77.3 cm/sec TR max P.6 mmHg MV E/A: 1.3 Ao V2 VTI: 24.5 cm RAP systole: 5.0 mmHg RVSP(TR): 31.6 mmHg Left Ventricle The left ventricle is normal in size and function. There is normal left ventricular wall thickness. Left ventricular systolic function is normal. Ejection Fraction = 60-65%. No regional wall motion abnormalities noted. Right Ventricle The right ventricle is normal in size and function. Atria The left atrial size is normal. Right atrial size is normal. The interatrial septum is intact with no evidence for an atrial septal defect. Mitral Valve The mitral valve is normal in structure and function. There is no evidence of mitral valve prolapse. There is no mitral valve stenosis. There is mild mitral regurgitation. Tricuspid Valve Normal tricuspid valve. There is mild tricuspid regurgitation. RVSP is 32- 37mmHG. Aortic Valve The aortic valve opens well. There is no aortic stenosis. There is no aortic insufficiency. Pulmonic Valve The pulmonic valve is normal in structure and function. There is no pulmonic valvular regurgitation. Great Vessels The aortic root is normal size. Pericardium/Pleural There is no pericardial effusion. Conclusion A complete two-dimensional transthoracic echocardiogram was performed (2D, M-mode, Doppler and color flow Doppler). The left ventricle is normal in size and function. Left ventricular systolic function is normal. Ejection Fraction = 60-65%. RVSP is 32-37mmHG. There is mild tricuspid regurgitation. Final Reading Physician: Dilan Jacinto signed on 05/09/2016 11:00 AM Ordering Physician: Mary Hadley Performed By: Savanna Steen RDCS
[2016-05-09] MEDS: NICOTINE POLACRILEX 2 MG GUM B PRN ×2 (18:03→21:06)
[2016-05-09] MEDS ORDERED: SENNOSIDES 17.6 MG/10 ML UDL PO PRN (20:35)
[2016-05-09] MEDS: GUAIFENESIN/DM 10 ML UDCUP PO PRN (21:03)
[2016-05-09] MEDS: IBUPROFEN 200 MG TAB PO PRN (21:03)
[2016-05-09] MEDS: DOCUSATE SODIUM 100 MG CAP PO SCH (21:03)
[2016-05-10] MEDS: IPRATROPIUM/ALBUTEROL 3 ML DEYVIAL IH SCH ×4 (04:23→21:23)
[2016-05-10] MEDS: HYDROCODONE/APAP 5/325 TAB PO PRN ×5 (05:15→22:00)
[2016-05-10] MEDS: BENZONATATE 100 MG CAP PO PRN (05:16)
[2016-05-10 05:54] LABS: ANION GAP 7 mEq/L (8-16); CALCIUM 9.3 mg/dL (8.5-10.4); CARBON DIOXIDE 32 mEq/l (22-31); CHLORIDE 100 mEq/L (97-110); CREATININE 0.6 mg/dL (0.6-1.0); GLOMERULAR FILTRATION RATE > 60; GLUCOSE 113 mg/dL (70-100); MAGNESIUM 2.2 mg/dL (1.6-2.3); POTASSIUM 3.8 mEq/L (3.5-5.2); SODIUM 139 mEq/L (134-144)
[2016-05-10] MEDS ORDERED: POTASSIUM CL 10 MEQ TAB PO ONE (08:10)
[2016-05-10] MEDS: predniSONE 20 MG TAB PO SCH (08:58)
[2016-05-10] MEDS: CITALOPRAM 20 MG TAB PO SCH (08:58)
[2016-05-10] MEDS: PANTOPRAZOLE SODIUM 40 MG TAB PO SCH (08:58)
[2016-05-10] MEDS: MULTIVITAMINS 1 EACH TAB PO SCH (08:58)
[2016-05-10] MEDS: DOCUSATE SODIUM 100 MG CAP PO SCH ×2 (08:58→20:12)
[2016-05-10] MEDS: FUROSEMIDE 40 MG TAB PO SCH (08:59)
[2016-05-10] MEDS: ENOXAPARIN 40 MG/0.4 ML SYR SC SCH (08:59)
[2016-05-10] MEDS: FOLIC ACID 1 MG TAB PO SCH (08:59)
[2016-05-10] MEDS: THIAMINE HCL 100 MG TAB PO SCH (08:59)
[2016-05-10] MEDS: CHOLECALCIFEROL VIT D3 1,000 UNITS TAB PO SCH (08:59)
[2016-05-10] MEDS: CETIRIZINE 10 MG TAB PO SCH (08:59)
[2016-05-10] MEDS: GUAIFENESIN/DM 10 ML UDCUP PO PRN ×2 (09:05→20:15)
[2016-05-10] MEDS: BEER 1 EACH EA PO SCH ×2 (09:26→20:16)
[2016-05-10] MEDS: BECLOMETHASONE QVAR 40 MDI IH SCH ×2 (09:41→21:23)
--- NOTE | 2016-05-10 10:18 | HOSPPROG ---
Hospitalist Progress Note Assessment/Plan: Patient is a 50-year-old female with a history of asthma, GERD and generalized anxiety disorder. She presented to the ED with 8 days of upper respiratory and gastroenteritis symptoms. # acute hypoxic respiratory failure * likely a URI/poss pneumonia /also has asthma * negative for influenza * now on 0.5 liters * on room air earlier was 90% #. bilateral pleural effusions * echo stable * one dose of lasix #. concern for CAP * prn nebs, steroids * abx #. viral gastroenteritis * resolved #. Asthma * Qvar * give a dose of mag sulfate x 1 now/ increase wheezing * check a peak flow # hypokalemia * resolved # chronic alcohol use * per patient drinks 6 beer daily * placed on CIWA * supportive treatment w thiamine, folate and MVI * Added beer twice daily/ which has helped * encouraged her to cut back # chronic allergic rhinitis * continue antihistamine #. nicotine dependence * cessation recommended/told her this is affecting her health ifrah with asthma # generalized anxiety disorder * this is likely impacting her significantly * she needs f/u care for this # dispo: dc later today Subjective: Betsy is feeling overall better/ very anxious about her health. Objective: Vital Signs Temp Pulse Resp BP Pulse Ox 36.6 C 72 18 136/86 H 92 05/10/16 08:00 05/10/16 09:57 05/10/16 09:57 05/10/16 08:00 05/10/16 09:57 Microbiology 05/09/16 22:41 - Final Sputum, Expectorated Laboratory Results 05/09/16 05:09 05/10/16 05:30 05/09/16 05/10/16 05/11/16 05:59 05:59 05:59 Intake Total 800 2540 Output Total 1300 500 Balance 800 1240 -500 - Physical Exam Constitutional: no apparent distress Eyes: PERRL Ears, Nose, Mouth, Throat: hearing normal Cardiovascular: regular rate and rhythym Respiratory: no respiratory distress, expiratory wheeze (few scattered) Gastrointestinal: normoactive bowel sounds, other (round) Skin: warm Musculoskeletal: full muscle strength Neurologic: AAOx3 Psychiatric: anxious ICD10 Worksheet Patient Problems: Problems Problem Status Onset Exacerbation of asthma Acute Hypoxia Acute Pneumonia Acute
[2016-05-10] MEDS: NICOTINE POLACRILEX 2 MG GUM B PRN ×3 (10:37→20:16)
[2016-05-10] MEDS: IBUPROFEN 200 MG TAB PO PRN ×2 (13:43→20:11)
[2016-05-10] MEDS ORDERED: IOPAMIDOL (ISOVUE-370) 150 ML BTL IV ONE (15:10)
[2016-05-10 18:50] LABS: POTASSIUM 4.2 mEq/L (3.5-5.2)
[2016-05-10] MEDS: methylPREDNISolone SOD SUCC 125 MG/2 ML VIAL IVP SCH (21:34)
--- NOTE | 2016-05-10 21:58 | GCON ---
PULMONARY CONSULTATION. REASON FOR CONSULTATION: Asthma exacerbation secondary to bronchopneumonia. HISTORY: The patient is a pleasant 50-year-old with a long history of asthma. As a child she was t reated at [facility]. She has had asthma throughout the years but over the last few years has been largely using just an albuterol rescue inhaler which she uses several times per week. She has been on Advair and QVAR in the past as an outpatient but has not required these recently. Generally she does fairly well, complaining of some shortness of breath/dyspnea on exertion secondary to her underlying asthma. However, she has generally been active and without significant wheezes. Approxi mately 2 weeks prior to admission. She began to have increased cough and congestion. This was asso ciated with fever, chills, and sweats and some yellowish creamy mucus. She also had some nausea and vomiting and diarrhea. She denied any known aspiration. She came to the emergency room 4 days ago secondary to increasing shortness of breath and wheezing. She was placed on 4 L in the emergency d epartment and admitted. She was started on antibiotics, bronchodilators and steroids. Urinary stre p antigen came back positive. Initial chest x-ray on admission showed some airway thickening and so me patchy infiltrates bilaterally and in the lingula consistent with pneumonia. Followup x-ray done 2 days later showed increased interstitial markings and small bilateral effusions. A CT angiogram of the chest was done today secondary to some chest pain. There is no evidence of thromboembolic di sease. She had very small pleural effusions and atelectasis/infiltrates bilaterally associated with some pleural effusions. The infiltrates were ground-glass in appearance suggesting an atypical pne umonitis. On the above treatment she feels she has gradually improved and is clearly getting better. She is n o longer bringing up any significant sputum. She has been on low-flow oxygen at approximately 1 L. Room air saturations have been in the upper 80s to low 90s. She is afebrile. She continues to not ice wheezing and feels that her symptoms wax and wane throughout the day. PAST MEDICAL HISTORY: Remarkable for her underlying asthma, gastroesophageal reflux and depression for which she takes Celexa. There is a history of allergies. ALLERGIES: No known drug allergies. She is allergic to nuts. SOCIAL HISTORY: The patient is with 2 teenagers, one at , one at [facility]. She has 2 dogs and 1 bird at home. She does have some allergies to the dogs. 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 She does smoke cigarettes and has smoked since she was a teenager off and on. She quit for 12 years. She states she never smoked more than a half pack of cigarettes per day. Estim ated pack year history is perhaps 10, possibly more. She does drink beer daily. FAMILY HISTORY: Positive for coronary artery disease. REVIEW OF SYSTEMS: Negative except as mentioned above. PHYSICAL EXAMINATION: GENERAL: A pleasant woman who is sitting comfortably in bed. VITAL SIGNS: Blood pressure is 140/80, heart rate 75 and regular, respiratory rate is 16. She is on 1 L of oxyg en with saturations of 94%. She is afebrile. HEENT: Unremarkable for lymphadenopathy or thyromega ly. There is no obvious jugular venous distention. CHEST: Scattered bilateral wheezing in inspira tion and expiration. This is more pronounced with forced maneuvers. She has an occasional dry coug h with deep inspiratory efforts which increase her wheezes. There are no rhonchi. She is not bring ing up any mucus. HEART: Regular rate and rhythm without significant murmurs or gallops. ABDOMEN: Soft, nontender. Bowel sounds are present. EXTREMITIES: Unremarkable for significant edema, cor ds or tenderness. NEUROLOGIC: Examination is within normal limits. LABORATORY DATA: CT scan of the chest is as outlined above. In addition, there is some mild cylind rical bronchiectasis in the right middle lobe and lingula. Chemistries are within normal limits. White blood cell count 5000, hematocrit 35, down from 45 on admission. Differential appears normal with some atypical lymphocytes present. ASSESSMENT: 1. Asthma with exacerbation. 2. Bronchopneumonia. This appears to be more atypical by a CT scan and could include viral etiolog ies, mycoplasma, etc. Streptococcal urinary antigen is present. However, the appearance does not corona ggest a pneumococcal pneumonia. Atypical presentation would be possible. She is on adequate covera ge for this with Levaquin and is clearly improving from an infectious standpoint. 3. History of tobacco use. It is difficult to get a clear history regarding her smoking. She has at least 10 pack years and I would imagine possibly more. In any case, she may or may not have a co mponent of chronic obstructive pulmonary disease or reactive airways disease on top of her underlyin g asthma which has been present since childhood. PLAN AND RECOMMENDATIONS: Prednisone will be stopped and Solu-Medrol given at 60 mg IV q.8. She is already improving. However, the increased steroids may help resolve her exacerbation more quickly. DuoNeb will be continued. Antibiotics will be continued. Her other medications such as omeprazol e also need to be given. Spirometry pre and post bronchodilator will be obtained tomorrow. This I do not believe that bronchoscopy would be useful. This can be readdressed at some point as an outpa tient if needed. My feeling is that the majority of her changes seen on CT scan will resolve. I an ticipate that she will need to be in the hospital another day and a half and then perhaps can be dis charged to home on antibiotics and a steroid taper, nebulize treatments, etc. if she is doing well. All the above was discussed with the patient. Burt Menjivar MD, will see her for our service tomorrow. Copy requested to: [facility] /[id number]/MODL
[2016-05-11] MEDS: LEVALBUTEROL 1.25 MG/3 ML DEYVIAL IH PRN ×5 (01:34→21:05)
[2016-05-11] MEDS: HYDROCODONE/APAP 5/325 TAB PO PRN (02:49)
[2016-05-11] MEDS: methylPREDNISolone SOD SUCC 125 MG/2 ML VIAL IVP SCH ×3 (05:34→22:09)
[2016-05-11 06:13] LABS: MAGNESIUM 2.2 mg/dL (1.6-2.3); POTASSIUM 4.5 mEq/L (3.5-5.2)
[2016-05-11] MEDS: IPRATROPIUM/ALBUTEROL 3 ML DEYVIAL IH SCH ×4 (06:23→21:13)
[2016-05-11] MEDS ORDERED: HYDROCODONE/APAP 5/325 TAB PO PRN (08:07)
[2016-05-11] MEDS: CHOLECALCIFEROL VIT D3 1,000 UNITS TAB PO SCH (08:59)
[2016-05-11] MEDS: FUROSEMIDE 40 MG TAB PO SCH (08:59)
[2016-05-11] MEDS: MULTIVITAMINS 1 EACH TAB PO SCH (08:59)
[2016-05-11] MEDS: CITALOPRAM 20 MG TAB PO SCH (08:59)
[2016-05-11] MEDS: THIAMINE HCL 100 MG TAB PO SCH (08:59)
[2016-05-11] MEDS: DOCUSATE SODIUM 100 MG CAP PO SCH ×2 (08:59→22:09)
[2016-05-11] MEDS: CETIRIZINE 10 MG TAB PO SCH (08:59)
[2016-05-11] MEDS: PANTOPRAZOLE SODIUM 40 MG TAB PO SCH (08:59)
[2016-05-11] MEDS: FOLIC ACID 1 MG TAB PO SCH (09:00)
[2016-05-11] MEDS: ENOXAPARIN 40 MG/0.4 ML SYR SC SCH (09:00)
[2016-05-11] MEDS: BEER 1 EACH EA PO SCH ×2 (09:20→18:06)
--- NOTE | 2016-05-11 09:28 | HOSPPROG ---
Hospitalist Progress Note Assessment/Plan: Patient is a 50-year-old female with a history of asthma, GERD and generalized anxiety disorder. She presented to the ED with 8 days of upper respiratory and gastroenteritis symptoms. # acute hypoxic respiratory failure * likely a URI/pneumonia /also has asthma * negative for influenza * now on 0.5 liters * appreciate Dr Mcnally * CTA of chest shows no PE/ likely chronic conditions * she feels much better w IV steroids #. bilateral pleural effusions * echo stable * small per CT * Was having right sided rib pain from this/ better/cont ibuprofen/ dc narcotics #. concern for CAP * prn nebs, steroids * abx #. viral gastroenteritis * resolved #. Asthma * Qvar # hypokalemia * resolved # chronic alcohol use * per patient drinks 6 beer daily * placed on CIWA * supportive treatment w thiamine, folate and MVI * Added beer twice daily/ which has helped * encouraged her to cut back # chronic allergic rhinitis * continue antihistamine #. nicotine dependence * cessation recommended/told her this is affecting her health ifrah with asthma # generalized anxiety disorder * this is likely impacting her significantly * she needs f/u care for this # dispo: pending/ needs another day of iv steroids Subjective: Betsy is feeling better today. Objective: Vital Signs Temp Pulse Resp BP Pulse Ox 36.9 C 70 18 141/78 H 86 L 05/11/16 08:00 05/11/16 08:00 05/11/16 08:00 05/11/16 08:00 05/11/16 08:00 Microbiology 05/09/16 22:41 - Final Sputum, Expectorated Laboratory Results 05/09/16 05:09 05/11/16 05:29 05/10/16 05/11/16 05/12/16 05:59 05:59 05:59 Intake Total 2540 2070 Output Total 1300 2300 600 Balance 1240 -230 -600 - Physical Exam Constitutional: no apparent distress Eyes: PERRL Ears, Nose, Mouth, Throat: hearing normal Cardiovascular: regular rate and rhythym Respiratory: no respiratory distress, expiratory wheeze (much improved today) Gastrointestinal: normoactive bowel sounds Skin: warm Musculoskeletal: full muscle strength, no muscle tenderness Neurologic: AAOx3 Psychiatric: anxious ICD10 Worksheet Patient Problems: Problems Problem Status Onset Exacerbation of asthma Acute Hypoxia Acute Pneumonia Acute
[2016-05-11] MEDS: BECLOMETHASONE QVAR 40 MDI IH SCH ×2 (09:35→21:05)
[2016-05-11] MEDS: IBUPROFEN 200 MG TAB PO PRN ×3 (11:09→23:26)
[2016-05-11] MEDS: NICOTINE POLACRILEX 2 MG GUM B PRN ×2 (13:23→18:03)
--- NOTE | 2016-05-11 14:19 | PDINTPN ---
Motor Vehicle Representative Progress Note Assessment/Plan: Assessment: 50 F with long standing history of asthma admitted with exacerbation and slow to improve. States she was only using various short-acting bronchodilators prior to admission, but was found to have infiltrates on CT and started antibiotics. Changed from PO to IV steroids 05/10 and she reported substantial improvement. * Asthma exacerbation- improved without wheezing today. Continue solumedrol today (though causing emotional lability) and return to prednisone in AM. DC QVAR today and start Advair in AM (with plans to eventually remove if possible) and dc scheduled duoneb. If she tolerates this well, she likely can dc home in afternoon on Advair 250/50, Levaquin for total 7 days, prn Xopenex or Ventolin ( her preference), and prednisone taper over next 2-3 weeks. She should fu at [facility] with eventual PFTs. I will look for her current inpatient PFT as well. * Hypoxia- borderline- titrate to sat >88 on RA Subjective: Feels much better on IV steroids, even though she was on prednisone at 60 mg daily. Objective: Vital Signs Temp Pulse Resp BP Pulse Ox 36.9 C 88 20 141/78 H 92 05/11/16 08:00 05/11/16 10:35 05/11/16 10:35 05/11/16 08:00 05/11/16 10:35 Microbiology 05/09/16 22:41 - Final Sputum, Expectorated Laboratory Results 05/09/16 05:09 05/11/16 05:29 05/10/16 05/11/16 05/12/16 05:59 05:59 05:59 Intake Total 2540 2070 Output Total 1300 2300 1600 Balance 1240 -230 -1600 Physical Exam - Physical Exam General Appearance: alert, no apparent distress, anxiety, obese EENT: PERRL/EOMI, normal ENT inspection Neck: full range of motion, supple Respiratory: lungs clear, normal breath sounds, No respiratory distress, No rales, No rhonchi, No stridor, No wheezing Cardiac/Chest: normal peripheral pulses, regular rate, rhythm, No edema Abdomen: non-tender, soft, No distended Skin: normal color, warm/dry, No rash Lymphatic: no adenopathy Extremities: No pedal edema Neuro/Psych: alert, oriented x 3, other (emotionally labile) ICD10 Worksheet Patient Problems: Problems Problem Status Onset Exacerbation of asthma Acute Hypoxia Acute Pneumonia Acute
[2016-05-11] MEDS ORDERED: MELATONIN 3 MG TAB PO PRN (17:41)
[2016-05-11 18:40] LABS: POTASSIUM 3.7 mEq/L (3.5-5.2)
[2016-05-11] MEDS: ACETAMINOPHEN 500 MG TAB PO PRN (19:53)
[2016-05-11] MEDS: GUAIFENESIN/DM 10 ML UDCUP PO PRN (19:54)
[2016-05-11] MEDS ORDERED: POTASSIUM CL 10 MEQ TAB PO ONE (22:33)
[2016-05-12] MEDS: LEVALBUTEROL 1.25 MG/3 ML DEYVIAL IH PRN ×2 (00:24→05:51)
[2016-05-12] MEDS: methylPREDNISolone SOD SUCC 125 MG/2 ML VIAL IVP SCH (04:55)
[2016-05-12] MEDS: IPRATROPIUM/ALBUTEROL 3 ML DEYVIAL IH SCH (05:45)
[2016-05-12 05:54] LABS: POTASSIUM 4.4 mEq/L (3.5-5.2)
[2016-05-12] MEDS: IBUPROFEN 200 MG TAB PO PRN (06:15)
--- NOTE | 2016-05-12 08:37 | HOSPPROG ---
Hospitalist Progress Note Assessment/Plan: Patient is a 50-year-old female with a history of asthma, GERD and generalized anxiety disorder. She presented to the ED with 8 days of upper respiratory and gastroenteritis symptoms. # acute hypoxic respiratory failure * likely a URI/pneumonia /also has asthma * negative for influenza * resolved/ on room air #. bilateral pleural effusions * echo stable * small per CT * Was having right sided rib pain from this/ better/cont ibuprofen/ dc narcotics #. CAP * levaquin #. viral gastroenteritis * resolved #. Asthma * Qvar/pulm recommends changing to Advair # hypokalemia * resolved # chronic alcohol use * per patient drinks 6 beer daily * placed on CIWA * supportive treatment w thiamine, folate and MVI * Added beer twice daily/ which has helped * she is thinking about going to AA # chronic allergic rhinitis * continue antihistamine #. nicotine dependence * cessation recommended/told her this is affecting her health ifrah with asthma # generalized anxiety disorder * this is likely impacting her significantly * she needs f/u care for this # dispo: dc home Subjective: Betsy feels well today. Objective: Vital Signs Temp Pulse Resp BP Pulse Ox 36.8 C 84 16 117/70 93 05/11/16 22:05 05/11/16 22:05 05/11/16 22:05 05/11/16 22:05 05/11/16 22:05 Microbiology 05/09/16 22:41 - Final Sputum, Expectorated Sputum Culture - Final Laboratory Results 05/09/16 05:09 05/12/16 04:55 05/11/16 05/12/16 05/13/16 05:59 05:59 05:59 Intake Total 0 Output Total 2300 1600 Balance -230 -1600 - Physical Exam Constitutional: no apparent distress, appears nourished Eyes: PERRL Ears, Nose, Mouth, Throat: hearing normal Cardiovascular: regular rate and rhythym Respiratory: no respiratory distress Gastrointestinal: normoactive bowel sounds Musculoskeletal: full muscle strength Neurologic: AAOx3 Psychiatric: interacting appropriately ICD10 Worksheet Patient Problems: Problems Problem Status Onset Exacerbation of asthma Acute Hypoxia Acute Pneumonia Acute
[2016-05-12 08:45] VITALS: BP 145/89; PULSE 72; RESP 14; TEMP 98.6; O2SAT 95
[2016-05-12] MEDS: ENOXAPARIN 40 MG/0.4 ML SYR SC SCH (08:51)
[2016-05-12] MEDS: THIAMINE HCL 100 MG TAB PO SCH (08:52)
[2016-05-12] MEDS: ACETAMINOPHEN 500 MG TAB PO PRN (08:52)
[2016-05-12] MEDS: PANTOPRAZOLE SODIUM 40 MG TAB PO SCH (08:53)
[2016-05-12] MEDS: DOCUSATE SODIUM 100 MG CAP PO SCH (08:53)
[2016-05-12] MEDS: CHOLECALCIFEROL VIT D3 1,000 UNITS TAB PO SCH (08:53)
[2016-05-12] MEDS: CITALOPRAM 20 MG TAB PO SCH (08:53)
[2016-05-12] MEDS: FOLIC ACID 1 MG TAB PO SCH (08:53)
[2016-05-12] MEDS: MULTIVITAMINS 1 EACH TAB PO SCH (08:53)
[2016-05-12] MEDS: CETIRIZINE 10 MG TAB PO SCH (08:53)
[2016-05-12] MEDS ORDERED: predniSONE 20 MG TAB PO SCH (09:00)
[2016-05-12] MEDS: NICOTINE POLACRILEX 2 MG GUM B PRN (09:01)
--- NOTE | 2016-05-12 09:27 | GDS ---
DISCHARGE DIAGNOSES: 1. Acute hypoxemic respiratory failure. 2. Community-acquired pneumonia. 3. Bilateral pleural effusions. 4. Viral gastroenteritis. 5. Asthma. 6. Hypokalemia. 7. Chronic alcohol use. 8. Chronic allergic rhinitis. 9. Nicotine dependence. 10. Generalized anxiety disorder. CONSULTATION: Dr. Trung Mcnally of Pulmonology. BRIEF SUMMARY: The patient is a 50-year-old female with a history of asthma, GERD, allergic rhinitis, anxiety disorder who presented to the emergency room with 1 week of generalized malaise. Her symptoms began with congestion, cough, and then she began to experience nausea, vomiting and diarrhea. On arrival to the emergency room, she was febrile and hypoxic. A chest x-ray revealed no obvious focal infiltrate, but evidence of a viral pneumonitis. She was admitted and treated for community-acquired pneumonia, slowly improved. Her urine strep pneumonia antigen was positive. Antibiotics were changed to Levaquin. She was also treated with steroids orally. She did not improve. She had a CTA that was performed which was negative for a pulmonary embolus, but consistent with underlying signs and symptoms of lung disease. She was evaluated by the director religious education who recommended that she be placed on IV steroids. After a few days of this she improved nicely. Today she will be discharged home. She will follow up with [facility] and her primary care provider. PROBLEM LIST: 1. Acute hypoxemic respiratory failure. This was multifactorial with pneumonia and asthma. She was negative for the flu. Her oxygen levels are stable on discharge. 2. Bilateral pleural effusions. An echocardiogram was performed; this was stable. She was having some right-sided rib pain. She was treated with Lasix. Her recent CT scan showed that the pleural effusions are small. 3. Community-acquired pneumonia, Strep pneumoniae. She was treated with Levaquin with much improvement. 4. Viral gastroenteritis, resolved. 5. Asthma. She has been on QVAR. Game Operator is recommending changing her to Advair. 6. Hypokalemia, resolved. 7. Chronic alcohol use. We have had multiple talks regarding this. She is looking into AA. 8. Chronic allergic rhinitis, on antihistamine. 9. Nicotine dependence. We had discussions about nicotine and the impact on her health especially in the setting of asthma. She has done well without any cigarettes. I encouraged her to try not to restart smoking. 10. Generalized anxiety disorder. She is on Celexa. I encouraged her to get outside and walk daily. LABORATORY DATA: Pending labs and tests: None. CONDITION: Stable. Blood pressure was 145/89, heart rate 72, respiratory rate 14, O2 sat on room air is 95%, temperature is 37 degrees Celsius. DISCHARGE MEDICATIONS: Please see the EMR. DISCHARGE INSTRUCTIONS: 1. Take it easy while on Levaquin. 2. Take vitamin D as instructed and get her levels rechecked in 6 weeks. 3. Follow up with [facility]. 4. Recommend she quit smoking and quit drinking altogether. They have been impacting her health. 5. If she develops fever, chills chest pain, or shortness of breath, return to the ER. Greater than 30 minutes discharging and coordinating care. /[id number]/MODL MTDD
[2016-05-12] MEDS: BECLOMETHASONE QVAR 40 MDI IH SCH (09:43)
== END 2016-05-12 10:46 | disposition home or self-care (01) | DRG 193 ==
LOC: INTOOBSV 04:55 → F3E 06:05 → OBSVTOIN 05-07 16:15
PROVIDERS: ADMIT Internal Medicine; ATTEND Internal Medicine
DX: J13 Pneumonia due to Streptococcus pneumoniae (principal); J45.901 Unspecified asthma with (acute) exacerbation; J96.01 Acute respiratory failure with hypoxia; A08.4 Viral intestinal infection, unspecified; E87.6 Hypokalemia; J90 Pleural effusion, not elsewhere classified; Z72.89 Other problems related to lifestyle; F41.9 Anxiety disorder, unspecified; F17.210 Nicotine dependence, cigarettes, uncomplicated
CPT/HCPCS: 82607-90; 87449-90; 96365; G0378; J0456; J0696; J1650; J3475; Q9967

== ENCOUNTER → 2016-07-04 | Outpatient (CLI) | payer MEDICAID | LOC: FIMAGING 14:08 | PROVIDERS: ATTEND Internal Medicine Pulmonary Disease | DX: R05 Cough (principal); Z87.01 Personal history of pneumonia (recurrent) ==

== ENCOUNTER 2018-03-04 11:21 | Day surgery (SDC) | payer MEDICAID ==
[2018-03-04] MEDS ORDERED: fentaNYL 100 MCG/2 ML INJ IVP PRN (11:49)
[2018-03-04] MEDS ORDERED: FLUMAZENIL 0.5 MG/5 ML MDV IVP PRN (11:49)
[2018-03-04] MEDS ORDERED: NALOXONE HCL 0.4 MG/ML INJ IVP PRN (11:49)
[2018-03-04] MEDS ORDERED: MIDAZOLAM 2 MG/2 ML VIAL IVP PRN (11:49)
[2018-03-04] MEDS ORDERED: NS 1,000 ML IV SCH (12:00)
[2018-03-04] MEDS ORDERED: TRIAMCINOLONE ACETONIDE 200 MG/5 ML MDV IM ONE (12:30)
[2018-03-04] MEDS ORDERED: IOPAMIDOL (ISOVUE-M 300) 15 ML VIAL ONE (12:30)
--- NOTE | 2018-03-04 12:34 | PDPROPOC ---
Sedation Plan of Care Sedation Plan of Care: vital signs stable, mental status noted, patient educated of risks, benefits, alternatives, patient can tolerate sedation ASA Classification: ASA 2 Planned drugs: fentanyl, midazolam Mallampati Score: Class 2 Mallampati Reference Image: Patient passed 3-3-2 rule?: Yes
--- NOTE | 2018-03-04 12:36 | PDGENHP ---
History & Physical Chief Complaint: NEEDS CERVICAL INJECTION History of Present Illness: LOWER NECK PAIN THAT RADIATES UP THE HEAD, INTO HEADACHE, AND LT SHOULDER PAIN Pertinent Past, Social, Family History: EX SMOKER Relevant Physical Exam: 08/25 Cardiorespiratory Assessment: RRR, CTA
--- NOTE | 2018-03-04 13:11 | PDRADPN ---
Radiology Procedure Note Date of Procedure: 03/04/18 Radiologist: Yelitza Landin Anesthesia: IV Sedation Pre-op Diagnosis: injection needed Post-op Diagnosis: same Indication: severe neck pain Procedure: C/S BENNETT Inf/Abcess present in the surg proc area at time of surgery?: No
[2018-03-04 15:11] VITALS: BP 159/93
== END 2018-03-04 14:37 | disposition home or self-care (01) ==
LOC: FIMAGING 11:21
PROVIDERS: ATTEND Family Medicine
DX: M54.12 Radiculopathy, cervical region (principal); M50.323 Other cervical disc degeneration at C6-C7 level; R51 Headache; Z87.891 Personal history of nicotine dependence
CPT/HCPCS: J2250; J3010; J3301; Q9967